=== PATIENT | female | born 1965 | race Caucasian/White ===

== ENCOUNTER 2020-02-03 13:06 | Outpatient (CLI) | payer BC, SELFPAY ==
--- NOTE | 2020-02-03 13:15 | MM_ITS ---
WS: [id number] BILATERAL DIGITAL SCREENING MAMMOGRAPHY WITH CAD CLINICAL INFORMATION: SCREENING HISTORY: Screening mammogram. No current complaints. COMPARISON: November 08, 2018 TECHNIQUE: Bilateral CC and MLO views. FINDINGS: Scattered fibroglandular densities bilaterally. No suspicious focal mass, asymmetry, calcifications, or architectural distortion. No evidence of malignancy. Stable right lobulated intramammary lymph [place] MM/[place] [id number] IMPRESSION: BI-RADS: 2-Benign FOLLOW UP: 1 Year Follow-up Recommend return to annual screening mammography.
== END 2020-02-03 13:07 | disposition home or self-care (01) ==
LOC: RADSHAW 13:14
PROVIDERS: PCP Nurse Practitioner Family; Visit Provider Nurse Practitioner Family
DX: Z12.31 Encounter for screening mammogram for malignant neoplasm of breast (principal)
CPT/HCPCS: 77067

== ENCOUNTER → 2021-04-10 16:01 | Outpatient (BNVA) | payer BC, SELFPAY | PROVIDERS: PCP Nurse Practitioner Family; Visit Provider Nurse Practitioner Family | DX: Z20.822 Contact with and (suspected) exposure to COVID-19 (principal); J06.9 Acute upper respiratory infection, unspecified | CPT/HCPCS: 87635 ==

== ENCOUNTER 2021-07-08 12:29 | Outpatient (CLI) | payer BC, SELFPAY ==
--- NOTE | 2021-07-08 13:05 | MM_ITS ---
WS: [id number] BILATERAL DIGITAL SCREENING MAMMOGRAPHY WITH CAD CLINICAL INFORMATION: SCREENING HISTORY: Screening mammogram. No current complaints. COMPARISON: February 03, 2020 TECHNIQUE: Bilateral CC and MLO views. FINDINGS: Scattered fibroglandular densities bilaterally. Stable intramammary lymph nodes outer right breast. N o suspicious focal mass, asymmetry, calcifications, or architectural distortion. No evidence of malig dariel. MM/[place] [id number] IMPRESSION: BI-RADS: 2-Benign FOLLOW UP: 1 Year Follow-up Recommend return to annual screening mammography.
== END 2021-07-08 12:30 | disposition home or self-care (01) ==
LOC: RADSHAW 12:34
PROVIDERS: PCP Nurse Practitioner Family; Visit Provider Nurse Practitioner Family
DX: Z12.31 Encounter for screening mammogram for malignant neoplasm of breast (principal)
CPT/HCPCS: 77067

== ENCOUNTER 2022-06-06 08:50 | Outpatient (CLI) | payer OTHER, SELFPAY ==
--- NOTE | 2022-06-06 09:05 | XR_ITS ---
WS: [id number] Exam: XR lumbar spine 6V w f/e [id number] Date/Time of Exam: 06/06/2022 9:10 AM Reason For Exam: M54.50 - Low back pain, unspecified Comparison 06/30/2016. No acute fracture or dislocation. Degenerative narrowing of the L3-4 and L5-S1 disc. Facet arthropath y at all levels but most marked at L4-5 and L5-S1. No significant flexion or extension instability. M ild spondylosis. Moderate dextroscoliosis. XR/XR lumbar spine 6V w f/e [id number] IMPRESSION: 1. No fracture or instability. 2. Degenerative facet changes and scoliosis.
== END 2022-06-06 08:51 | disposition home or self-care (01) ==
PROVIDERS: PCP Family Medicine; Visit Provider Family Medicine
DX: M47.896 Other spondylosis, lumbar region (principal); M41.86 Other forms of scoliosis, lumbar region
CPT/HCPCS: 72114

== ENCOUNTER → 2022-07-18 09:29 | Outpatient (BNVA) | payer OTHER, SELFPAY | PROVIDERS: PCP Family Medicine; Visit Provider Nurse Practitioner Family | DX: R05.9 Cough, unspecified (principal) | CPT/HCPCS: 71046; 80053 ==

== ENCOUNTER 2022-09-15 08:51 | Outpatient (CLI) | payer OTHER, SELFPAY ==
--- NOTE | 2022-09-15 09:06 | MM_ITS ---
WS: [id number] BILATERAL SCREENING DIGITAL TOMOSYNTHESIS MAMMOGRAM WITH CAD HISTORY: SCREENING COMPARISON: None available. Bilateral CC and MLO views with tomosynthesis and synthetic mammography submitted. Computer aided det ection analyzed. Breast composition: There are scattered areas of fibroglandular density. No suspicious masses, microc alcifications or architectural distortion. Stable lobulated nodule lateral RIGHT breast. No suspiciou s mass or calcifications. MM/[place] [id number] IMPRESSION: BI-RADS: 2-Benign FOLLOW UP: 1 Year Follow-up
== END 2022-09-15 08:52 | disposition home or self-care (01) ==
LOC: RAD 08:55
PROVIDERS: PCP Family Medicine; Visit Provider Family Medicine
DX: Z12.31 Encounter for screening mammogram for malignant neoplasm of breast (principal)
CPT/HCPCS: 77063; 77067

== ENCOUNTER → 2023-03-06 09:53 | Outpatient (BNVA) | payer OTHER, SELFPAY | PROVIDERS: PCP Family Medicine; Visit Provider Nurse Practitioner Family | DX: R39.9 Unspecified symptoms and signs involving the genitourinary system (principal); N39.0 Urinary tract infection, site not specified | CPT/HCPCS: 81003; 87086 ==

== ENCOUNTER → 2023-04-28 08:32 | Outpatient (BNVA) | payer OTHER, SELFPAY | PROVIDERS: PCP Family Medicine; Visit Provider Family Medicine | DX: N39.0 Urinary tract infection, site not specified (principal) | CPT/HCPCS: 81003 ==

== ENCOUNTER → 2023-05-08 11:09 | Outpatient (BNVA) | payer OTHER, SELFPAY | PROVIDERS: PCP Family Medicine; Visit Provider Family Medicine | DX: N39.0 Urinary tract infection, site not specified (principal); N20.0 Calculus of kidney | CPT/HCPCS: 81000 ==

== ENCOUNTER 2023-05-12 16:14 | Outpatient (CLI) | payer OTHER, SELFPAY ==
--- NOTE | 2023-05-12 17:00 | CTR_ITS ---
PROCEDURE INFORMATION: Exam: CT Abdomen And Pelvis Without Contrast Exam date and time: 05/12/2023 4:26 PM Age: 57 years old Clinical indication: Pain and condition or disease; Kidney or ureter condition; Calculus (stone) in kidney; Abdominal pain; Localized; Right lower quadrant (rlq); Prior surgery; Surgery date: 6+ months; Surgery type: Gastric sleeve; Additional info: N20.0 - calculus of kidney TECHNIQUE: Imaging protocol: Computed tomography of the abdomen and pelvis without contrast. Radiation optimization: All CT scans at this facility use at least one of these dose optimization techniques: automated exposure control; mA and/or kV adjustment per patient size (includes targeted exams where dose is matched to clinical indication); or iterative reconstruction. REPORTING DATA: Count of CT and Cardiac NM exams in prior 12 months: This patient has received 0 known CTs and 0 known cardiac nuclear medicine studies in the 12 months prior to the current study. COMPARISON: CR XR chest 2V* [id number] 07/18/2022 9:40 AM RADIATION DOSE METRICS: Total DLP (mGy-cm): 783.86 FINDINGS: Liver: Normal. No mass. Gallbladder and bile ducts: Normal. No calcified stones. No ductal dilation. Pancreas: Normal. No ductal dilation. Spleen: Normal. No splenomegaly. Adrenal glands: Normal. No mass. Kidneys and ureters: Normal. No hydronephrosis. Stomach and bowel: Previous gastric sleeve. Appendix: No evidence of appendicitis. Intraperitoneal space: See Reproductive finding. Vasculature: Unremarkable. No abdominal aortic aneurysm. Lymph nodes: Unremarkable. No enlarged lymph nodes. Urinary bladder: Unremarkable as visualized. Reproductive: Lobulated midline pelvic mass most likely of uterine origin arising superiorly into the abdomen. Hounsfield units up to 50 suggesting that there may be a component of hemorrhage although not likely to be acute. Mass is difficult to measure but is probably up to 21 cm superior to inferior. Bones/joints: Unremarkable. No acute fracture. Soft tissues: Unremarkable. CT/CT kidney stone [id number] IMPRESSION: Lobulated midline pelvic mass arising in the abdomen measuring up to 21 cm. This is primarily fluid density with some areas that may represent subacute hemorrhage. Would recommend further evaluation with ultrasound and possibly MRI. There is no definite normal uterine tissue is seen.
== END 2023-05-12 16:15 | disposition home or self-care (01) ==
LOC: RAD 16:14
PROVIDERS: PCP Family Medicine; Visit Provider Family Medicine
DX: N20.0 Calculus of kidney (principal); R19.09 Other intra-abdominal and pelvic swelling, mass and lump
CPT/HCPCS: 74176

== ENCOUNTER 2023-05-18 09:26 | Outpatient (CLI) | payer OTHER, SELFPAY ==
--- NOTE | 2023-05-18 10:00 | US_ITS ---
WS: [email or web address] Complete ABDOMINAL ULTRASOUND HISTORY: R19.00 - Intra-abdominal and pelvic swelling, mass and lino... COMPARISON: CT abdomen and pelvis 05/12/2023 Liver: 15.9 cm in length. Normal size liver and echogenicity. No bile duct dilatation or mass. Portal Vein: Normal hepatopetal flow with monophasic waveform. Gallbladder: Normally distended gallbladder with no stones or wall thickening. CBD: 0.3 cm Pancreas: Normal size and echogenicity. Right kidney: 11.3 cm x 4.9 x 4.1 cm. Cortex: 1.3 cm. Normal size kidney. Hyperechoic focus in the mid kidney measures 5 mm. Probably a small angiomyolipom a or nonshadowing calcification. No hydronephrosis. Left kidney: 11.9 cm x 3.8 cm x 4.6 cm. Cortex: 1.2 cm. Normal size and echogenicity. No hydronephrosis or mass. Spleen: Top normal size at 14.5 cm in length. Aorta and IVC: Unremarkable abdominal aorta and IVC. Previously described mass in the pelvis is arising to the level of the umbilicus. There is both cysti c and solid components of this mass. Solid component extends to the RIGHT of midline. There is a more cystic component which is probably an area of necrosis more midline. The entire mass is not well vis ualized. Better visualized on the CT. Impression: 1. Unremarkable abdominal ultrasound. 2. There is a pelvic mass which is noted at the level of the umbilicus that was described better on t he noncontrast CT from 05/12/2023. Mass has both solid and cystic components. May represent fibroid u terus with necrotic components. Recommend [employer] evaluation. Mass needs to be surgically removed.
== END 2023-05-18 09:27 | disposition home or self-care (01) ==
LOC: RAD 09:26
PROVIDERS: PCP Family Medicine; Visit Provider Family Medicine
DX: R19.05 Periumbilic swelling, mass or lump (principal)
CPT/HCPCS: 76700

== ENCOUNTER → 2023-05-20 15:00 | Outpatient (BNVA) | payer OTHER, SELFPAY | PROVIDERS: PCP Family Medicine; Visit Provider Obstetrics & Gynecology | DX: Z12.4 Encounter for screening for malignant neoplasm of cervix (principal); N20.0 Calculus of kidney | CPT/HCPCS: 80053; 82607; 82728; 82746; 83010; 83550; 85025; 85045; 86304; 87624 ==

== ENCOUNTER → 2023-06-17 14:50 | Outpatient (BNVA) | payer OTHER, SELFPAY | PROVIDERS: PCP Family Medicine; Visit Provider Family Medicine | DX: Z01.818 Encounter for other preprocedural examination (principal) | CPT/HCPCS: 71046; 80053; 85025 ==

== ENCOUNTER 2023-10-09 11:14 | Outpatient (CLI) | payer OTHER, SELFPAY ==
--- NOTE | 2023-10-09 11:47 | MM_ITS ---
WS: [id number] BILATERAL 3D TOMOSYNTHESIS DIGITAL SCREENING MAMMOGRAPHY WITH CAD CLINICAL INFORMATION: SCREENING HISTORY: Screening mammogram. No current complaints. COMPARISON: 2022 TECHNIQUE: Bilateral CC and MLO views. FINDINGS: Scattered fibroglandular densities bilaterally. No suspicious focal mass, asymmetry, calcifications, or architectural distortion. No evidence of malignancy. Stable incidental intramammary lymph nodes. A few incidental punctate calcifications. IMPRESSION: MM/[place] [id number] BI-RADS: 2-Benign FOLLOW UP: 1 Year Follow-up Recommend return to annual screening mammography.
== END 2023-10-09 11:15 | disposition home or self-care (01) ==
LOC: RAD 11:15
PROVIDERS: PCP Family Medicine; Visit Provider Family Medicine
DX: Z12.31 Encounter for screening mammogram for malignant neoplasm of breast (principal)
CPT/HCPCS: 77063; 77067

== ENCOUNTER → 2024-05-30 15:40 | Outpatient (BNVA) | payer OTHER, SELFPAY | PROVIDERS: PCP Nurse Practitioner Family; Visit Provider Nurse Practitioner Family | DX: Z13.6 Encounter for screening for cardiovascular disorders (principal) | CPT/HCPCS: 80053; 80061; 84443; 85025 ==

== ENCOUNTER → 2024-09-26 15:19 | Outpatient (BNVA) | payer BC, SELFPAY | PROVIDERS: PCP Nurse Practitioner Family; Visit Provider Nurse Practitioner Family | DX: M25.562 Pain in left knee (principal) | CPT/HCPCS: 73562 ==

== ENCOUNTER 2024-10-17 14:14 | Outpatient (CLI) | payer BC, SELFPAY ==
--- NOTE | 2024-10-17 14:17 | MM_ITS ---
WS: [id number] BILATERAL 3D TOMOSYNTHESIS DIGITAL SCREENING MAMMOGRAPHY WITH CAD CLINICAL INFORMATION: SCREENING HISTORY: Screening mammogram. No current complaints. COMPARISON: 2023 TECHNIQUE: Bilateral CC and MLO views. FINDINGS: Scattered fibroglandular densities bilaterally. No suspicious focal mass, asymmetry, calcifications, or architectural distortion. No evidence of malignancy. Incidental intramammary lymph node RIGHT breast. LEFT Port-A-Cath. MM/MM scr BI tomosynthesis [id number] IMPRESSION: DENSITY: There are scattered areas of fibroglandular density. BI-RADS: 2 - Benign. FOLLOW UP: 1 Year Follow-up Recommend return to annual screening mammography.
== END 2024-10-17 14:15 | disposition home or self-care (01) ==
PROVIDERS: PCP Nurse Practitioner Family; Visit Provider Nurse Practitioner Family
DX: Z12.31 Encounter for screening mammogram for malignant neoplasm of breast (principal); M25.562 Pain in left knee; R92.323 Mammographic fibroglandular density, bilateral breasts; R59.0 Localized enlarged lymph nodes; Z96.89 Presence of other specified functional implants; M17.12 Unilateral primary osteoarthritis, left knee; M25.762 Osteophyte, left knee; R93.6 Abnormal findings on diagnostic imaging of limbs
CPT/HCPCS: 73560; 73565; 77063; 77067

== ENCOUNTER → 2024-11-16 14:45 | Outpatient (BNVA) | payer BC, SELFPAY | PROVIDERS: PCP Nurse Practitioner Family; Visit Provider Nurse Practitioner Family | DX: M25.571 Pain in right ankle and joints of right foot (principal); D50.9 Iron deficiency anemia, unspecified; M79.89 Other specified soft tissue disorders | CPT/HCPCS: 73610; 80053; 83550; 85025 ==

== ENCOUNTER → 2024-11-23 11:35 | Outpatient (BNVA) | payer BC, SELFPAY | PROVIDERS: PCP Nurse Practitioner Family; Visit Provider Nurse Practitioner Family | DX: R60.0 Localized edema (principal) | CPT/HCPCS: 80048; 85025 ==

== ENCOUNTER → 2024-11-30 09:44 | Outpatient (BNVA) | payer BC, SELFPAY | PROVIDERS: PCP Nurse Practitioner Family; Visit Provider Nurse Practitioner Family | DX: D50.9 Iron deficiency anemia, unspecified (principal) | CPT/HCPCS: 80053; 83550; 85025 ==

== ENCOUNTER 2025-04-14 16:26 | Outpatient (CLI) | payer BC, SELFPAY ==
[2025-04-14 16:59] LABS: Hematocrit 31.4 % (36-47); Hemoglobin 9.60 g/dL (11.27-16.99); Mean Corpuscular HGB Conc 30.6 g/dL (30-55); Mean Corpuscular Hemoglobin 26.1 pg (27-33); Mean Corpuscular Volume 85.3 fl (85-98); Nucleated Red Blood Cells % 0 %; Platelet Count 449 10^3/cmm (157-399); Red Blood Count 3.68 10^6/uL (3.85-5.65); White Blood Count 9.97 10^3/uL (3.29-11.43)
[2025-04-14 17:23] LABS: Alanine Aminotransferase 10 U/L (0-33); Albumin Level 4.1 g/dL (3.5-5.2); Alkaline Phosphatase 99 U/L (35-105); Anion Gap 20.1 (5-19); Aspartate Amino Transferase 13 U/L (0-32); Blood Urea Nitrogen 24 mg/dL (6-20); Calcium 9.5 mg/dL (8.5-10.5); Carbon Dioxide 24 mmol/L (22-29); Chloride 98 mmol/L (98-107); Globulin 4.1 g/dL (1.3-4.6); Glucose 100 mg/dL (65-115); Osmolality Calculated 290 mOsm/kg (285-295); Potassium 4.1 mmol/L (3.5-5.1); Sodium 138 mmol/L (136-145); Total Protein 8.2 g/dL (6.6-8.7)
== END 2025-04-14 16:27 | disposition home or self-care (01) ==
PROVIDERS: PCP Nurse Practitioner Family; Visit Provider Nurse Practitioner Family
DX: M25.50 Pain in unspecified joint (principal)
CPT/HCPCS: 36415; 80053; 82550; 85025; 85651; 86140